=== PATIENT | female | born 1935 | race Caucasian/White ===

== ENCOUNTER 2017-12-28 17:43 | Emergency (ER) | payer OTHER ==
[~2017-12-28] VITALS: Ht 157.5 cm; Wt 39.9 kg
[2017-12-28] MEDS ORDERED: ENSURE ACTIVE237 M1 (17:52)
[2017-12-28] MEDS ORDERED: VITAMIN E400 UNI6 (17:52)
== END 2017-12-28 21:54 | disposition home or self-care (01) ==
LOC: ER 17:43
DX: S00.83XA Contusion of other part of head, initial encounter (principal); W18.09XA Striking against other object with subsequent fall, initial encounter; Y93.89 Activity, other specified; Y92.018 Other place in single-family (private) house as the place of occurrence of the external cause; Y99.8 Other external cause status